=== PATIENT | female | born 1985 ===

== ENCOUNTER → 2022-06-24 | Day surgery (SDC) | payer OTHER ==
[~2022-06-24] VITALS: Ht 154.9 cm; Wt 72.6 kg
[~2022-06-24] MED LIST: MORGIDOX100 MG PO; NAPR500T14 PO; PERCOCET 5-3251 EACH PO
== END | disposition home or self-care (01) ==
LOC: ADM 06-18 08:00 → CIR.AMB 08:00
PROVIDERS: ATTEND Obstetrics & Gynecology
DX: N92.0 Excessive and frequent menstruation with regular cycle (principal); N84.0 Polyp of corpus uteri; D25.0 Submucous leiomyoma of uterus; N91.1 Secondary amenorrhea; R10.2 Pelvic and perineal pain; N92.5 Other specified irregular menstruation; I10 Essential (primary) hypertension; Z20.822 Contact with and (suspected) exposure to COVID-19